=== PATIENT | male | born 1965 | race Caucasian/White ===

== ENCOUNTER 2018-06-12 17:09 | Emergency (ER) | payer BC ==
[~2018-06-12 17:09] MED LIST: BISO1TAB79 PO; DOC100 PO; DOXY50CA27 PO; ETOD200C26 PO; INDO-21 PO; LISI-374 PO; MELA10TA2 PO; MELATONIN; PER PO; POTASSIUM; ZIAC PO
[2018-06-12] MEDS ORDERED: FEBU80TA3 PO (17:15)
[2018-06-12] MEDS ORDERED: AMLO-96 PO (17:17)
[2018-06-12] MEDS ORDERED: DICL-195 PO (17:17)
[2018-06-12] MEDS ORDERED: LOSA100T67 PO (17:17)
--- NOTE | 2018-06-12 17:19 | ER Report ---
History and Physical Time Seen By MD: 17:20 HPI/ROS CHIEF COMPLAINT: Leg swelling and pain HISTORY OF PRESENT ILLNESS: 52-year-old male patient presents to emergency room with complaint of leg swelling and pain. Patient states this been going on for the last couple days. He states that he has gotten so much that he is having a hard time walking. Patient denies any injury to his lower extremity is. Patient states he is no significant swelling to the bilateral lower extremities, he states that goes up just about to the knees. He states that he's also had knee pain as well as pain to both feet. Patient states that he does have a history of gout. He is in the process of being started on Uloric. Patient states that he has had some flareups of his gout. He states this seems to be fairly significant it is a flareup of his gout. He states that he's never had a flareup in more than one location. Patient denies having any chest pain. She sees had some shortness of breath with climbing of stairs. REVIEW OF SYSTEMS: Respiratory: As noted above Cardiovascular: As noted above Gastrointestinal: No vomiting, no abdominal pain. Musculoskeletal: As noted above Allergies: Uncoded Allergies: ALLUPURINOL (Allergy, Mild, 06/12/18) Home Meds Active Scripts Furosemide (LASIX) 20 Mg Tablet, 1 TAB PO DAILY, #15 TAB Prov:SABRA WOOD [facility] 06/12/18 Hydrocodone Bit/Acetaminophen (HYDROCODON-ACETAMINOPHEN 5-325) 1 Each Tablet, 1 EACH PO Q4-6H PRN for PAIN, #8 TAB Prov:SABRA WOOD [facility] 06/12/18 Prednisone (PREDNISONE) 20 Mg Tablet, 40 MG PO DAILY, #8 TAB Prov:SABRA WOOD [facility] 06/12/18 Reported Medications Losartan Potassium (LOSARTAN POTASSIUM) 100 Mg Tablet, 100 MG PO QDAY 06/12/18 Amlodipine Besylate (AMLODIPINE BESYLATE) 5 Mg Tablet, 1 TAB PO QDAY, TAB 06/12/18 Diclofenac Sodium (DICLOFENAC SODIUM) 75 Mg Tablet.dr, 75 MG PO BID, TAB 06/12/18 Febuxostat (ULORIC) 80 Mg Tablet, 80 MG PO QDAILY 06/12/18 Melatonin (MELATONIN) 10 Mg Tablet, 3-6 PO HS 05/09/17 Discontinued Reported Medications Indomethacin (INDOMETHACIN) 25 Mg Capsule, PO PRN PRN for GOUT, CAPSULE 05/09/17 Bisoprolol Fumarate/Hctz (BISOPROLOL-HCTZ 10-6.25 MG TAB) 1 Each Tablet, 1 EACH PO QDAY, TAB 05/09/17 Past Medical/Surgical History Patient has a past medical history of hypertension, reflux, gout, social alcohol use. Patient has a surgical history of knee surgery 3, fracture repair, umbilical hernia repair. Patient has a family medical history of CAD. Reviewed Nurses Notes: Yes Hx Smoking: Yes (1 CAN PER WEEK, 20 YEARS ) Hx Alcohol Use: Yes Constitutional Vital Sign - Last 24 Hours 06/12/18 06/12/18 06/12/18 06/12/18 17:13 17:16 17:30 17:39 Temp 98.7 Pulse 109 105 Resp 22 B/P (MAP) 170/96 170/96 (120) 164/102 (122) Pulse Ox 94 93 O2 Delivery Room Air 06/12/18 06/12/18 06/12/18 06/12/18 18:00 18:15 18:30 18:45 Pulse 101 98 95 96 B/P (MAP) 163/87 (112) 144/68 (93) Pulse Ox 93 93 96 95 06/12/18 06/12/18 19:00 19:15 Pulse 92 96 B/P (MAP) 132/73 (92) Pulse Ox 92 93 Physical Exam General Appearance: The patient is alert, has no immediate need for airway protection and no current signs of toxicity. Respiratory: Chest is non tender, lungs are clear to auscultation. Cardiac: regular rate and rhythm Gastrointestinal: Abdomen is soft and non tender, no masses, bowel sounds normal. Musculoskeletal: Neck: Neck is supple and non tender. Extremities have full range of motion and are tender. Patient does have some erythema around the knees and the tops of both feet. Skin: No rashes or lesions. DIFFERENTIAL DIAGNOSIS: After history and physical exam differential diagnosis was considered for gout, inflammation, DVT, lower extremity edema. Medical Decision Making Data Points Result Diagram: 06/12/18 1744 06/12/18 1744 Laboratory Hematology Test 06/12/18 17:44 Red Blood Count 5.10 M/uL (4.00-5.60) Mean Corpuscular Volume 90.8 fL (80.0-96.0) Mean Corpuscular Hemoglobin 30.4 pg (26.0-33.0) Mean Corpuscular Hemoglobin Concent 33.5 g/dL (32.0-36.0) Red Cell Distribution Width 13.9 % (11.5-14.5) Mean Platelet Volume 8.7 fL (7.2-11.1) Neutrophils (%) (Auto) 77.1 % (39.4-72.5) Lymphocytes (%) (Auto) 13.7 % (17.6-49.6) Monocytes (%) (Auto) 7.2 % (4.1-12.4) Eosinophils (%) (Auto) 1.3 % (0.4-6.7) Basophils (%) (Auto) 0.7 % (0.3-1.4) Nucleated RBC Relative Count (auto) 0.0 /100WBC Neutrophils # (Auto) 8.7 K/uL (2.0-7.4) Lymphocytes # (Auto) 1.5 K/uL (1.3-3.6) Monocytes # (Auto) 0.8 K/uL (0.3-1.0) Eosinophils # (Auto) 0.1 K/uL (0.0-0.5) Basophils # (Auto) 0.1 K/uL (0.0-0.1) Nucleated RBC Absolute Count (auto) 0.00 K/uL Prothrombin Time 13.0 seconds (12.0-14.4) Prothromb Time International Ratio 0.98 Sodium Level 139 mmol/L (137-145) Potassium Level 4.0 mmol/L (3.5-5.0) Chloride Level 105 mmol/L (98-107) Carbon Dioxide Level 24 mmol/L (22-30) Blood Urea Nitrogen 12 mg/dl (9-21) Creatinine 0.60 mg/dl (0.66-1.25) Glomerular Filtration Rate Calc > 60.0 Random Glucose 123 mg/dl (75-110) Calcium Level 8.7 mg/dl (8.4-10.2) Total Bilirubin 0.4 mg/dl (0.2-1.3) Aspartate Amino Transf (AST/SGOT) 33 U/L (0-35) Alanine Aminotransferase (ALT/SGPT) 64 U/L (0-56) Alkaline Phosphatase 64 U/L (0-126) Troponin I < 0.012 ng/ml C-Reactive Protein 4.3 mg/dl (<1.0) B-Type Natriuretic Peptide 45 pg/ml (0-100) Total Protein 7.4 g/dl (6.3-8.2) Albumin 4.2 g/dl (3.5-5.0) Chemistry Test 06/12/18 17:44 White Blood Count 11.3 k/uL (4.5-11.0) Red Blood Count 5.10 M/uL (4.00-5.60) Hemoglobin 15.5 g/dL (14.0-18.0) Hematocrit 46.3 % (42.0-52.0) Mean Corpuscular Volume 90.8 fL (80.0-96.0) Mean Corpuscular Hemoglobin 30.4 pg (26.0-33.0) Mean Corpuscular Hemoglobin Concent 33.5 g/dL (32.0-36.0) Red Cell Distribution Width 13.9 % (11.5-14.5) Platelet Count 210 K/uL (150-450) Mean Platelet Volume 8.7 fL (7.2-11.1) Neutrophils (%) (Auto) 77.1 % (39.4-72.5) Lymphocytes (%) (Auto) 13.7 % (17.6-49.6) Monocytes (%) (Auto) 7.2 % (4.1-12.4) Eosinophils (%) (Auto) 1.3 % (0.4-6.7) Basophils (%) (Auto) 0.7 % (0.3-1.4) Nucleated RBC Relative Count (auto) 0.0 /100WBC Neutrophils # (Auto) 8.7 K/uL (2.0-7.4) Lymphocytes # (Auto) 1.5 K/uL (1.3-3.6) Monocytes # (Auto) 0.8 K/uL (0.3-1.0) Eosinophils # (Auto) 0.1 K/uL (0.0-0.5) Basophils # (Auto) 0.1 K/uL (0.0-0.1) Nucleated RBC Absolute Count (auto) 0.00 K/uL Prothrombin Time 13.0 seconds (12.0-14.4) Prothromb Time International Ratio 0.98 Glomerular Filtration Rate Calc > 60.0 Calcium Level 8.7 mg/dl (8.4-10.2) Total Bilirubin 0.4 mg/dl (0.2-1.3) Aspartate Amino Transf (AST/SGOT) 33 U/L (0-35) Alanine Aminotransferase (ALT/SGPT) 64 U/L (0-56) Alkaline Phosphatase 64 U/L (0-126) Troponin I < 0.012 ng/ml C-Reactive Protein 4.3 mg/dl (<1.0) B-Type Natriuretic Peptide 45 pg/ml (0-100) Total Protein 7.4 g/dl (6.3-8.2) Albumin 4.2 g/dl (3.5-5.0) Coagulation Test 06/12/18 17:44 Prothrombin Time 13.0 seconds Prothromb Time International Ratio 0.98 EKG/Imaging Imaging Bilateral lower extremity duplex venous ultrasound Indication: Bilateral lower extremity edema. Comparison: None Available Findings: Duplex Doppler and color flow imaging was performed. The bilateral common femoral, femoral, and popliteal veins are all patent and compressible with normal Doppler wave forms. There are normal responses to augmentation. The bilateral posterior tibial and peroneal veins are clear. The proximal greater saphenous veins are also normal. Mild edema seen in the subcutaneous tissues of both lower legs. Impression: 1. No evidence of deep venous thrombosis of the bilateral lower extremities. Report Dictated By: Felix Green at 06/12/2018 7:10 PM Report E-Signed By: Felix Green at 06/12/2018 7:11 PM ED Course/Re-evaluation ED Course Patient was admitted to an exam room, history and physical were obtained. Differential diagnoses were considered. On examination patient has erythema and warmth to both knees, tops of both feet and 2+ pitting edema to bilateral lower extremities. A CBC, CMP, troponin, EKG, BNP, bilateral venous Doppler were done. Patient had no DVTs, CBC showed a white count of 11,100, slight left shift. I believe this likely secondary to the stress that he's been under. CRP was done which was 4.3. Patient does have a history of gout and has been taking euphoric to help with his gout. I believe that he has had a flareup of his gout which is was causing the erythema as well as the pain. I believe the inflammations caused by the gout is also causing the lower extremity edema. I discussed the findings with the patient and his . We will go ahead and start him on prednisone. I believe that will help with the inflammation. We will also treat him with 20 mg of furosemide daily to help with lower extremity edema. He stopped that when that has resolved. I would like him follow-up with his primary care provider at the end of this week for reevaluation. Patient verbalized understanding and agreement with plan. We will go ahead and discharge patient home at this time. He'll be given a limited supply of pain medication to help with the pain that he is experiencing. Decision to Disposition Date: Jun 12, 2018 Decision to Disposition Time: 19:20 Depart Departure Latest Vital Signs Vital Signs Date Time Temp Pulse Resp B/P (MAP) Pulse Ox O2 Delivery O2 Flow Rate FiO2 06/12/18 19:15 96 93 06/12/18 19:00 132/73 (92) 06/12/18 17:13 98.7 22 Room Air Impression: Primary Impression: Gout attack Additional Impression: Swelling of lower extremity Condition: Improved Disposition: HOME OR SELF-CARE Referrals: MIRTHA SCANLON MD (PCP) New Scripts Furosemide (LASIX) 20 Mg Tablet 1 TAB PO DAILY, #15 TAB Prov: SABRA WOOD 06/12/18 Hydrocodone Bit/Acetaminophen (HYDROCODON-ACETAMINOPHEN 5-325) 1 Each Tablet 1 EACH PO Q4-6H PRN for PAIN, #8 TAB Prov: SABRA WOOD 06/12/18 Prednisone (PREDNISONE) 20 Mg Tablet 40 MG PO DAILY, #8 TAB Prov: SABRA WOOD 06/12/18 Patient Instructions: Gout (ED) Additional Instructions: Continue with normal diet. Limit activity by pain. Follow up with Dr. Scanlon towards the end of this week. Take the medications as prescribed. Stop taking the Uloric for the next 5 days. Return to the ER if condition worsens. Problem Qualifiers Primary Impression: Gout attack Gout site: multiple sites Gout etiology: drug-induced Qualified Codes: M10.29 - Drug-induced gout, multiple sites SABRA WOOD Jun 12, 2018 17:19
[2018-06-12 17:52] LABS: PLATELET COUNT, AUTOMATED 210 K/uL (150-450)
[2018-06-12 18:01] LABS: INR 0.98
--- NOTE | 2018-06-12 18:06 | EKG ---
FACILITY: [facility] PATIENT NAME: BERNARDINO FLETCHER : [id number] MR: [id number] V: [id number] EXAM DATE: ORDERING PHYSICIAN: SABRA WOOD TECHNOLOGIST: NICA Test Reason : SWELLING Blood Pressure : / mmHG Vent. Rate : 105 BPM Atrial Rate : 105 BPM P-R Int : 158 ms QRS Dur : 086 ms QT Int : 344 ms P-R-T Axes : 038 029 006 degrees QTc Int : 454 ms Sinus tachycardia Possible left atrial enlargement No previous ECGs available Confirmed by SHAQUILLE MULLER ([id number]) on 06/12/2018 7:27:59 PM Referred By: BETTIE Confirmed By:SHAQUILLE MULLER
[2018-06-12 19:00] VITALS: BP 132/73
--- NOTE | 2018-06-12 19:14 | RADIOLOGY IMAGING REPORT ---
FACILITY: [facility] - [place], [place] PATIENT NAME: Ryan Medrano : 1965 MR: [id number] V: [id number] EXAM DATE: ORDERING PHYSICIAN: SABRA WOOD TECHNOLOGIST: Location: [facility] Patient: Ryan Medrano : 1965 Visit/Account:[id number] Date of Sevice: 06/12/2018 Bilateral lower extremity duplex venous ultrasound Indication: Bilateral lower extremity edema. Comparison: None Available Findings: Duplex Doppler and color flow imaging was performed. The bilateral common femoral, femoral , and popliteal veins are all patent and compressible with normal Doppler wave forms. There are norm al responses to augmentation. The bilateral posterior tibial and peroneal veins are clear. The proximal greater saphenous veins are also normal. Mild edema seen in the subcutaneous tissues of both lower legs. Impression: 1. No evidence of deep venous thrombosis of the bilateral lower extremities. Report Dictated By: Felix Green at 06/12/2018 7:10 PM Report E-Signed By: Felix Green at 06/12/2018 7:11 PM WSN:[id number]
[2018-06-12] MEDS ORDERED: FURO20TA19 PO (19:23)
[2018-06-12] MEDS ORDERED: HYDR-385 PO (19:23)
[2018-06-12] MEDS ORDERED: PRED20TA6 PO (19:23)
[2018-06-12] MEDS ORDERED: FUROSEMIDE 20 MG TAB PO ONE (19:25)
[2018-06-12] MEDS ORDERED: ACET/HYDROC 5/325MG TH ER ONLY 2 TAB/BOTTLE PO ONE (19:25)
[2018-06-12] MEDS ORDERED: predniSONE 20 MG TAB PO ONE (19:25)
== END 2018-06-12 19:40 | disposition home or self-care (01) ==
LOC: ER 17:45
DX: M10.29 Drug-induced gout, multiple sites (principal); M79.89 Other specified soft tissue disorders; R00.0 Tachycardia, unspecified
CPT/HCPCS: 83880; 84484; 85025; 85610; 86140; 93005; 93970; 99284; J7512; 82040; 82247; 82310; 82374; 82435; 82565; 82947; 84075; 84132; 84155; 84295; 84450; 84460; 84520

== ENCOUNTER → 2018-06-14 | Outpatient (REF) | payer BC ==
[~2018-06-14] MED LIST changes: +AMLO-96 PO; +DICL-195 PO; +FEBU80TA3 PO; +FURO20TA19 PO; +HYDR-385 PO; +LOSA100T67 PO; +PRED20TA6 PO
== END ==
LOC: ZZPBJ 18:13
PROVIDERS: ATTEND Orthopaedic Surgery
DX: M25.462 Effusion, left knee (principal)
CPT/HCPCS: 87071; 87205; 89050; 89060

== ENCOUNTER → 2018-06-14 | Outpatient (CLI) | payer BC | LOC: LAB 11:21 | PROVIDERS: ATTEND Orthopaedic Surgery | DX: M25.50 Pain in unspecified joint (principal); M25.40 Effusion, unspecified joint | CPT/HCPCS: 36415; 84550; 85027; 85651; 86038; 86140; 86430 ==

== ENCOUNTER → 2018-06-15 | Outpatient (CLI) | payer BC | LOC: LAB 09:38 | PROVIDERS: ATTEND Orthopaedic Surgery | DX: M25.50 Pain in unspecified joint (principal); M25.40 Effusion, unspecified joint | CPT/HCPCS: 36415 ==

== ENCOUNTER → 2018-08-03 | Outpatient (CLI) | payer BC ==
[~2018-08-03] MED LIST changes: +AMLO-111 PO; -AMLO-96 PO; +CHLOR25 PO; +COLC0.6C3 PO; +FEBU40TA2 PO; +FISH1CAP15 PO; -LOSA100T67 PO; +LOSA100T69 PO; +MULT-865 PO; +OMEP-125 PO; +PRED-420 PO
== END ==
LOC: LAB 07:44
PROVIDERS: ATTEND Emergency Medicine
DX: I10 Essential (primary) hypertension (principal)
CPT/HCPCS: 36415; 82310; 82374; 82435; 82565; 82947; 83036; 84132; 84295; 84443; 84520

== ENCOUNTER → 2018-08-03 | Outpatient (CLI) | payer BC | LOC: LAB 07:45 | PROVIDERS: ATTEND Internal Medicine Rheumatology | DX: M1A.0791 Idiopathic chronic gout, unspecified ankle and foot, with tophus (tophi) (principal) | CPT/HCPCS: 84550 ==

== ENCOUNTER → 2018-10-20 | Outpatient (CLI) | payer BC ==
[~2018-10-20] MED LIST changes: -AMLO-111 PO; +AMLO-125 PO; +BLOO-1318 MC; +BLOO-960 MC; +LANC-714 MC; -LOSA100T69 PO; +LOSA100T75 PO; +METF-450 PO; +PHEN-580 PO; +TRAM-420 PO
== END ==
LOC: LAB 08:40
PROVIDERS: ATTEND Emergency Medicine
DX: E11.9 Type 2 diabetes mellitus without complications (principal)
CPT/HCPCS: 36415; 83036

== ENCOUNTER → 2019-02-02 | Outpatient (CLI) | payer BC | LOC: LAB 01-04 18:13 | PROVIDERS: ATTEND Emergency Medicine | DX: E11.9 Type 2 diabetes mellitus without complications (principal) | CPT/HCPCS: 36415; 82465; 83036; 83718; 84478 ==

== ENCOUNTER → 2019-03-21 | Outpatient (CLI) | payer BC ==
[~2019-03-21] MED LIST changes: +EMPA10TA PO; -OMEP-125 PO; +OMEP-126 PO
[2019-03-21 10:18] LABS: PLATELET COUNT, AUTOMATED 238 K/uL (150-450)
--- NOTE | 2019-03-21 17:25 | EKG ---
FACILITY: [facility] - [place] PATIENT NAME: BERNARDINO FLETCHER : [id number] MR: [id number] V: [id number] EXAM DATE: ORDERING PHYSICIAN: BASILIA CLAIRE TECHNOLOGIST: RAYMOND WELLS Test Reason : Blood Pressure : / mmHG Vent. Rate : 088 BPM Atrial Rate : 088 BPM P-R Int : 160 ms QRS Dur : 088 ms QT Int : 394 ms P-R-T Axes : 042 046 042 degrees QTc Int : 476 ms Normal sinus rhythm Nonspecific ST abnormality Abnormal ECG No previous ECGs available Referred By: MELL Confirmed By:
== END ==
LOC: LAB 09:53
PROVIDERS: ATTEND Emergency Medicine
DX: Z01.818 Encounter for other preprocedural examination (principal)
CPT/HCPCS: 36415; 81001; 82040; 82247; 82310; 82374; 82435; 82565; 82947; 84075; 84132; 84155; 84295; 84450; 84460; 84520; 85025

== ENCOUNTER → 2019-03-23 | Outpatient (CLI) | payer BC | LOC: LAB 11:08 | PROVIDERS: ATTEND Emergency Medicine | DX: R74.8 Abnormal levels of other serum enzymes (principal); I10 Essential (primary) hypertension | CPT/HCPCS: 36415; 82040; 82247; 82248; 82310; 82374; 82435; 82565; 82947; 84075; 84132; 84155; 84295; 84450; 84460; 84520 ==

== ENCOUNTER → 2019-03-28 | Outpatient (CLI) | payer BC | LOC: LAB 10:32 | PROVIDERS: ATTEND Anesthesiology | DX: Z01.812 Encounter for preprocedural laboratory examination (principal); M16.11 Unilateral primary osteoarthritis, right hip | CPT/HCPCS: 36415; 86850; 86900; 86901 ==